=== PATIENT | female | born 1970 | race African-American/Black ===

== ENCOUNTER 2016-07-14 14:28 | Emergency (ER) | payer SELFPAY ==
[~2016-07-14] VITALS: Wt 60.0 kg
[~2016-07-14 14:28] MED LIST: AZIT250T94 PO; D-ME118S6 PO
[2016-07-14] MEDS ORDERED: GLYC113C3 TOP (21:12)
== END 2016-07-14 19:10 | disposition left against medical advice (07) ==
LOC: E/R 14:28
DX: Z53.21 Procedure and treatment not carried out due to patient leaving prior to being seen by health care provider (principal)

== ENCOUNTER 2016-07-14 20:44 | Emergency (ER) | payer OTHER ==
[~2016-07-14] VITALS: Ht 162.6 cm; Wt 50.0 kg
[2016-07-14 20:49] VITALS: Ht 162.6 cm; Wt 50.0 kg
[2016-07-14] MEDS ORDERED: GLYC113C3 TOP (21:12)
--- NOTE | 2016-07-14 21:17 | ERD ---
ER Documentation Chief Complaint Date/Time DATE: 07/14/16 TIME: 21:14 Chief Complaint bilateral hand pain HPI This 45-year-old female presents with bilateral hand pain and dry hands. States that she washes her hands but they get so dry. She has not tried any lotions or creams to help with her hands. She is not suffered any trauma to the area and can move her hands well. She has no fever chills or pain below the skin parts of her hand. Grandmother fully functional but they're uncomfortable. ROS All systems reviewed and are negative except as per history of present illness. Medications Home Meds Active Scripts Eucerin* (Eucerin*) 113 Gm Cream..g., 1 APPLIC TOP TID, #1 TUB Prov:TITODONELLDAMARIS MOE 07/14/16 Dextromethorphan Hb-Promethazine Hcl (Promethazine DM Syrup) 180 Ml Syrup, 5 ML PO Q6H Y for COUGH for 7 Days, OZ Prov:MARCO A CASTRO MD 05/03/15 Azithromycin* (Zithromax*) 250 Mg Tablet, 250 MG PO .ZPACK DIRECTED, #6 TAB TAKE 500 MG (2 TABS) THE FIRST DAY THEN 250 MG (1 TAB) DAYS 2-5 Prov:MARCO A CASTRO MD 05/03/15 Allergies Allergies: Coded Allergies: No Known Allergy (Unverified , 05/03/15) PMhx/Soc History of Surgery: Yes (REMOVAL OF SWEAT GLANDS) Anesthesia Reaction: No Hx Neurological Disorder: No Hx Respiratory Disorders: No Hx Cardiac Disorders: No Hx Psychiatric Problems: Yes (DEPRESSION, PARANOIA SCHIZPHRENIA) Hx Miscellaneous Medical Probl: Yes Hx Alcohol Use: Yes (occasionally) Hx Substance Use: No (denies) Hx Tobacco Use: Yes Smoking Status: Current every day smoker Physical Exam Vitals Vital Signs Date Time Temp Pulse Resp B/P Pulse Ox O2 Delivery O2 Flow Rate FiO2 07/14/16 20:49 96.6 80 20 133/70 97 Physical Exam Const: [] No distress Eyes: Normal Conjunctiva ENT: Normal External Ears, Nose and Mouth. Skin: No petechiae or rashes Ext: No cyanosis, or edema, dry skin apparent to bilateral hands, some flaking in areas. 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 Distal pulses and capillary refill are intact. No deformities, no erythema or calor. Neur: Awake and alert and oriented 3, no focal deficits Psych: Normal Mood and Affect Procedures/MDM 45 old female presents simply because her hands are dry and feel like they're cracking sometimes. She missed a Watson has been applying any lotion. She is fully functional hands with no signs of trauma or infection. Discharging with the Eucerin cream to be applied 3 times a day and primary care follow-up. Explained return precautions to the hospital if she starts to felt help any dysfunction of her hands. Departure Diagnosis: Primary Impression: Dry skin dermatitis Condition: Stable Patient Instructions: Dermatitis, Non-Specific Referrals: [facility] YOU HAVE RECEIVED A MEDICAL SCREENING EXAM AND THE RESULTS INDICATE THAT YOU DO NOT HAVE A CONDITION THAT REQUIRES URGENT TREATMENT IN THE EMERGENCY DEPARTMENT. FURTHER EVALUATION AND TREATMENT OF YOUR CONDITION CAN WAIT UNTIL YOU ARE SEEN IN YOUR DOCTORS OFFICE WITHIN THE NEXT 1-2 DAYS. IT IS YOUR RESPONSIBILITY TO MAKE AN APPOINTMENT FOR FOLOW-UP CARE. IF YOU HAVE A PRIMARY DOCTOR --you should call your primary doctor and schedule an appointment IF YOU DO NOT HAVE A PRIMARY DOCTOR YOU CAN CALL OUR PHYSICIAN REFERRAL HOTLINE AT IF YOU CAN NOT AFFORD TO SEE A PHYSICIAN YOU CAN CHOSE FROM THE FOLLOWING PENDING SALE TO [facility] [address] [facility]. [facility] [address] [facility] [facility] [address] [facility] [facility] [address] [facility]. [facility] [address] [facility]. [facility]. [address] Additional Instructions: Call your primary care doctor TOMORROW for an appointment during the next 2-3 days.See the doctor sooner or return here if your condition worsens before your appointment time. DONELL FRANCIS DO Jul 14, 2016 21:16
== END 2016-07-14 21:27 | disposition home or self-care (01) ==
LOC: E/R 20:44
DX: L85.3 Xerosis cutis (principal); F17.210 Nicotine dependence, cigarettes, uncomplicated
CPT/HCPCS: 99283

== ENCOUNTER 2016-07-25 12:24 | Emergency (ER) | payer SELFPAY ==
[~2016-07-25] VITALS: Ht 160 cm; Wt 52.0 kg
[~2016-07-25 12:24] MED LIST changes: +GLYC113C3 TOP
[2016-07-25 12:35] VITALS: Ht 160 cm; Wt 52.0 kg
== END 2016-07-25 17:34 | disposition left against medical advice (07) ==
LOC: FTE 12:24
DX: Z53.21 Procedure and treatment not carried out due to patient leaving prior to being seen by health care provider (principal)